=== PATIENT | female | born 2000 | race Caucasian/White ===

== ENCOUNTER 2025-01-19 19:47 | Emergency (ER) | payer OTHER ==
[~2025-01-19] VITALS: Ht 157.5 cm; Wt 64.0 kg
[2025-01-19 20:11] VITALS: O2SAT 100
[2025-01-19 20:25] VITALS: BP 122/84; PULSE 77; RESP 18; TEMP 36.8; O2SAT 97
== END 2025-01-19 22:29 | disposition left against medical advice (07) ==
LOC: ER 19:47
DX: R45.851 Suicidal ideations (principal)
CPT/HCPCS: 99282